=== PATIENT | male | born 2000 | race Two or more races ===

== ENCOUNTER 2024-03-16 06:45 | Emergency (ER) | payer OTHER ==
[~2024-03-16] VITALS: Ht 167.6 cm; Wt 69.8 kg
[2024-03-16] MEDS: LIDOCAINE W/EPINEPHRINE 1% 20ML VIAL SC ONE (12:25)
[2024-03-16 12:49] LABS: BASO % 0.2 % (0.0-1.0); EOS % 0.1 % (0.0-3.0); HEMATOCRIT 46.6 % (42.0-52.0); LYMPH # 1.4 10^3/uL (1.5-5.0); LYMPH % 8.5 % (24.0-44.0); MEAN CORPUSCULAR HEMOGLOBIN 29.8 pg (27.0-33.0); MEAN CORPUSCULAR HGB CONC 34.3 g/dl (32.0-36.5); MEAN CORPUSCULAR VOLUME 86.8 fl (80.0-96.0); MONO # 1.3 10^3/uL (0.0-0.8); MONO % 8.3 % (2.0-8.0); NEUTROPHILS # 13.3 10^3/uL (1.5-8.5); NEUTROPHILS % 82.3 % (36.0-66.0); PLATELET COUNT, AUTOMATED 191 10^3/uL (150-450); RED BLOOD COUNT 5.37 10^6/uL (4.30-6.10); WHITE BLOOD COUNT 16.1 10^3/uL (4.0-10.0)
[2024-03-16] MEDS: NS 1,000 ML IV ONE (12:52)
[2024-03-16] MEDS: MORPHINE 4 MG/ML 1ML VIAL IV ONE (12:52)
[2024-03-16 13:15] LABS: ETHYL ALCOHOL (ETHANOL) 0.152 % (0.000-0.010)
[2024-03-16 13:17] LABS: BLOOD UREA NITROGEN 6 MG/DL (9-23); CALCIUM LEVEL 9.7 MG/DL (8.5-10.1); CARBON DIOXIDE LEVEL 30 MMOL/L (20-31); CHLORIDE LEVEL 106 MMOL/L (98-107); CREATININE FOR GFR 0.64 MG/DL (0.70-1.30); GLOMERULAR FILTRATION RATE > 60.0 (>60); GLUCOSE, FASTING 90 MG/DL (60-100); SODIUM LEVEL 143 MMOL/L (136-145)
[2024-03-16] MEDS ORDERED: CEPH500C PO (14:29)
[2024-03-16] MEDS ORDERED: HYDR-3713 PO (14:29)
[2024-03-16] MEDS: ceFAZolin SOD 1 GM in D5W MINI-BAG PLUS 50 ML IV ONE (14:46)
[2024-03-16] MEDS: KETOROLAC 30 MG/ML 1ML VIAL IV ONE (14:47)
[2024-03-16] MEDS: BACITRACIN OINTMENT 30GM TUBE TOP ONE (14:47)
[2024-03-16 15:10] VITALS: BP 133/67; TEMP 99.6; O2SAT 96
== END 2024-03-16 15:42 | disposition home or self-care (01) ==
LOC: M ED 06:45
DX: S02.612A Fracture of condylar process of left mandible, initial encounter for closed fracture (principal); S02.2XXA Fracture of nasal bones, initial encounter for closed fracture; S01.81XA Laceration without foreign body of other part of head, initial encounter; S01.411A Laceration without foreign body of right cheek and temporomandibular area, initial encounter; S50.312A Abrasion of left elbow, initial encounter; S20.419A Abrasion of unspecified back wall of thorax, initial encounter; X58.XXXA Exposure to other specified factors, initial encounter; Y92.89 Other specified places as the place of occurrence of the external cause; Y93.9 Activity, unspecified; Y99.9 Unspecified external cause status
CPT/HCPCS: 12013; 70450; 70486; 71101; 72125; 73080; 80048; 82077; 85025; 96361; 96374; 96375; 99284; J0690; J1885